=== PATIENT | male | born 1965 | race Caucasian/White ===

== ENCOUNTER → 2020-07-24 | Outpatient (CLI) | payer OTHER | LOC: HEART 5 14:13 | DX: J44.9 Chronic obstructive pulmonary disease, unspecified (principal); J30.9 Allergic rhinitis, unspecified; F10.10 Alcohol abuse, uncomplicated | CPT/HCPCS: 94010 ==

== ENCOUNTER → 2020-08-11 | Outpatient (CLI) | payer OTHER | LOC: HEART 5 06-23 10:00 → ECHO 07-10 10:00 → HEART 5 08-21 14:30 | DX: R00.0 Tachycardia, unspecified (principal); I51.7 Cardiomegaly; I27.20 Pulmonary hypertension, unspecified | CPT/HCPCS: ECHO; 93306 ==